=== PATIENT | male | born 1980 | race Caucasian/White ===

== ENCOUNTER 2019-12-09 17:06 | Emergency (ER) | payer OTHER ==
[~2019-12-09] VITALS: Ht 170.2 cm; Wt 80.0 kg
[2019-12-09 17:07] VITALS: BP 113/72
[2019-12-09] MEDS ORDERED: IBUPROFEN 600 MG TABLET ONE (18:17)
[2019-12-09] MEDS ORDERED: IBUPROFEN 200 MG TABLET PO ONE (18:30)
== END 2019-12-09 18:49 | disposition home or self-care (01) ==
LOC: ED 18:15
DX: S93.491A Sprain of other ligament of right ankle, initial encounter (principal); S93.621A Sprain of tarsometatarsal ligament of right foot, initial encounter; W01.0XXA Fall on same level from slipping, tripping and stumbling without subsequent striking against object, initial encounter; Y93.89 Activity, other specified; Y92.830 Public park as the place of occurrence of the external cause; Y99.8 Other external cause status
CPT/HCPCS: 99284